=== PATIENT | female | born 1945 | race African-American/Black ===

== ENCOUNTER 2016-10-27 08:02 | Observation (INO) | payer MEDICARE, BC, OTHER ==
[2016-10-27] MEDS ORDERED: FAMOTIDINE 20 MG TABLET PO ONE (09:45)
[2016-10-27] MEDS ORDERED: PREDNISONE 20 MG TABLET PO ONE (09:45)
[2016-10-27] MEDS ORDERED: DIPHENHYDRAMINE HCL 50 MG CAPSULE PO ONE (09:45)
--- NOTE | 2016-10-27 09:48 | ER Document Report ---
ED General - General Chief Complaint: Facial Swelling Stated Complaint: FACE PAIN Mode of Arrival: Ambulatory Information source: Patient Notes: 71 yr old female on lisinopril presetns with lip swelling sicne 5am. pt denies any sob, chest pain , difficulty breathing or swallowing TRAVEL OUTSIDE OF THE [place] IN LAST 30 DAYS: No - HPI Onset: Just prior to arrival Onset/Duration: Sudden Quality of pain: No pain Severity: Mild Pain Level: Denies Associated symptoms: None Exacerbated by: Denies Relieved by: Denies Similar symptoms previously: No Recently seen / treated by doctor: No - Related Data Allergies/Adverse Reactions: Shellfish * [Shellfish] Allergy (Verified 10/27/16 08:10) Home Medications: Current Home Medications Aspirin [Aspirin EC] 81 mg PO DAILY 10/27/16 [History] Carvedilol [Coreg 25 mg Tablet] 25 mg PO Q12 10/27/16 [History] Felodipine [Felodipine ER] 5 mg PO DAILY 10/27/16 [History] Glimepiride [Amaryl] 2 mg PO DAILY 10/27/16 [History] Prasugrel Hydrochloride [Effient] 10 mg PO DAILY 10/27/16 [History] Rosuvastatin Calcium [Crestor 10 mg Tablet] 10 mg PO QHS 10/27/16 [History] Past Medical History - Social History Smoking Status: Never Smoker Cigarette use (# per day): No Chew tobacco use (# tins/day): No Smoking Education Provided: No Family History: Reviewed & Not Pertinent, Arthritis, CAD, DM, Hyperlipidemia, Hypertension - Past Medical History Cardiac Medical History: Reports: Hx Congestive Heart Failure, Hx Coronary Artery Disease, Hx Hypercholesterolemia, Hx Hypertension Endocrine Medical History: Reports: Hx Diabetes Mellitus Type 2 Musculoskeltal Medical History: Reports Hx Arthritis, Reports Hx Gout Psychiatric Medical History: Denies: Hx Depression Past Surgical History: Reports: Hx Cardiac Surgery - stent x1, Hx Cholecystectomy, Hx Coronary Stent, Hx Hysterectomy, Hx Tonsillectomy, Hx Vascular Surgery - renal stent x1. Denies: Hx Pacemaker - Immunizations Immunizations up to date: No Hx Diphtheria, Pertussis, Tetanus Vaccination: No Hx Pneumococcal Vaccination: 07/25/12 Review of Systems - Review of Systems Notes: REVIEW OF SYSTEMS: CONSTITUTIONAL : Denies fever, chills, or sweats. Denies recent illness. EENT: admits to lip swelling CARDIOVASCULAR: Denies chest pain. Denies palpitations or racing or irregular heart beat. Denies ankle edema. RESPIRATORY: Denies cough, cold, or chest congestion. Denies shortness of breath, difficulty breathing, or wheezing. GASTROINTESTINAL: Denies abdominal pain or distention. Denies nausea, vomiting , or diarrhea. Denies blood in vomitus, stools, or per rectum. Denies black, tarry stools. Denies constipation. GENITOURINARY: Denies difficulty urinating, painful urination, burning, frequency, blood in urine, or discharge. FEMALE GENITOURINARY: Denies vaginal bleeding, heavy or abnormal periods, irregular periods. Denies vaginal discharge or odor. MUSCULOSKELETAL: Denies back or neck pain or stiffness. Denies joint pain or swelling. SKIN: Denies rash, lesions or sores. HEMATOLOGIC : Denies easy bruising or bleeding. LYMPHATIC: Denies swollen, enlarged glands. NEUROLOGICAL: Denies confusion or altered mental status. Denies passing out or loss of consciousness. Denies dizziness or lightheadedness. Denies headache. Denies weakness or paralysis or loss of use of either side. Denies problems with gait or speech. Denies sensory loss, numbness, or tingling. Denies seizures. PSYCHIATRIC: Denies anxiety or stress. Denies depression, suicidal ideation, or homicidal ideation. ALL OTHER SYSTEMS REVIEWED AND NEGATIVE. Dictation was performed using [employer] voice recognition software PHYSICAL EXAMINATION: GENERAL: Well-appearing, well-nourished and in no acute distress. HEAD: Atraumatic, normocephalic. EYES: Pupils equal round and reactive to light, extraocular movements intact, conjunctiva are normal. ENT: bilateral upper and lower lip edema NECK: Normal range of motion, supple without lymphadenopathy LUNGS: Breath sounds clear to auscultation bilaterally and equal. No wheezes rales or rhonchi. HEART: Regular rate and rhythm without murmurs ABDOMEN: Soft, nontender, nondistended abdomen. No guarding, no rebound. No masses appreciated. Female : deferred Musculoskeletal: Normal range of motion, no pitting or edema. No cyanosis. NEUROLOGICAL: Cranial nerves grossly intact. Normal speech, normal gait. Normal sensory, motor exams PSYCH: Normal mood, normal affect. SKIN: Warm, Dry, normal turgor, no rashes or lesions noted. Physical Exam - Vital signs Vitals: Temp Pulse Resp BP Pulse Ox 97.3 F 89 16 144/68 H 99 10/27/16 08:13 10/27/16 08:13 10/27/16 08:13 10/27/16 08:13 10/27/16 08:13 Course - Re-evaluation Re-evalutation: 10/27/16 11:17 given patients complaints that are worsening i will admit for observation no resp distress at this time - Vital Signs Vital signs: Temp Pulse Resp BP Pulse Ox 97.3 F 89 16 144/68 H 99 10/27/16 08:13 10/27/16 08:13 10/27/16 08:13 10/27/16 08:13 10/27/16 08:13 - Laboratory Result Diagrams: 10/27/16 10:03 10/27/16 10:03 Laboratory results interpreted by me: 10/27/16 10:03 Hgb 11.7 L Hct 34.4 L RDW 14.6 H Plt Count 119 L Discharge - Discharge Clinical Impression: Medication reaction Angioedema Qualifiers: Encounter type: initial encounter Qualified Code(s): T78.3XXA - Angioneurotic edema, initial encounter Condition: Stable Disposition: ADMITTED OBSERVATION Admitting Provider: Hospitalist Unit Admitted: Medical Floor
[2016-10-27 10:20] LABS: ABSOLUTE BASOPHILS # (AUTO) 0.1 10^3/uL (0.0-0.2); ABSOLUTE EOSINOPHILS # (AUTO) 0.3 10^3/uL (0.0-0.6); ABSOLUTE LYMPHOCYTES (AUTO) 1.8 10^3/uL (0.5-4.7); ABSOLUTE MONOCYTES (AUTO) 0.8 10^3/uL (0.1-1.4); ABSOLUTE NEUT (AUTO) 5.2 10^3/uL (1.7-8.2); BASOPHILS % (AUTO) 0.7 % (0-2); EOSINOPHILS % (AUTO) 3.3 % (0-6); HEMATOCRIT 34.4 % (36.0-47.0); HEMOGLOBIN 11.7 g/dL (12.0-15.5); HGB HCT DIFFERENCE 0.7; LYMPHOCYTES % (AUTO) 22.5 % (13-45); MEAN CORPUSCULAR HEMOGLOBIN 29.6 pg (27.0-33.4); MEAN CORPUSCULAR HGB CONC 34.1 g/dL (32.0-36.0); MEAN CORPUSCULAR VOLUME 87 fl (80-97); MONOCYTES % (AUTO) 9.4 % (3-13); RED BLOOD COUNT 3.96 10^6/uL (3.72-5.28); RED CELL DISTRIBUTION WIDTH 14.6 % (11.5-14.0); SEGMENTED NEUTROPHILS % (AUTO) 64.1 % (42-78); WHITE BLOOD COUNT 8.2 10^3/uL (4.0-10.5)
[2016-10-27] MEDS ORDERED: ONDANSETRON HCL INJ/PF 4 MG/2 ML SDV IV PRN (10:37)
[2016-10-27] MEDS ORDERED: ZOLPIDEM TARTRATE 5 MG TABLET PO PRN (10:37)
[2016-10-27] MEDS ORDERED: ACETAMINOPHEN 325 MG TABLET PO PRN (10:37)
[2016-10-27] MEDS ORDERED: DIPHENHYDRAMINE HCL 25 MG CAPSULE PO PRN (10:40)
[2016-10-27 11:46] LABS: ALANINE AMINOTRANSFERASE 39 U/L (9-52); ALKALINE PHOSPHATASE 54 U/L (38-126); ANION GAP 6 (5-19); ASPARTATE AMINO TRANSFERASE 21 U/L (14-36); BILIRUBIN,TOTAL 0.3 mg/dL (0.2-1.3); BLOOD UREA NITROGEN 13 mg/dL (7-20); CALCIUM 9.3 mg/dL (8.4-10.2); CARBON DIOXIDE 26 mmol/L (22-30); CHLORIDE 109 mmol/L (98-107); GLUCOSE 70 mg/dL (75-110); POTASSIUM 3.8 mmol/L (3.6-5.0); TOTAL PROTEIN 5.7 g/dL (6.3-8.2)
[2016-10-27] MEDS ORDERED: DEXTROSE 40% GEL 15 GM TUBE PO PRN ×2 (12:45)
[2016-10-27] MEDS ORDERED: DEXTROSE 50%-WATER 25 GM/50 ML DISP.SYRIN IV PRN ×2 (12:45)
[2016-10-27] MEDS ORDERED: GLUCAGON,HUMAN RECOMB 1 MG INJ IM PRN (12:45)
[2016-10-27] MEDS ORDERED: GLIMEPIRIDE 1 MG TABLET PO ONE ×2 (13:30→17:45)
[2016-10-27] MEDS ORDERED: CARVEDILOL 12.5 MG TABLET PO ONE ×2 (13:30→17:50)
--- NOTE | 2016-10-27 14:32 | PDOC H&P ---
History of Present Illness Admission Date/PCP: 10/27/16 10:37 BRAD CAO MD Patient complains of: Upper lip swelling History of Present Illness: JUAN MIGUEL CASTANON is a 71 year old female who presents to [facility] with complaint of spontaneous upper lip swelling that began around 4am this morning. She noticed it when she got up to use the bathroom. She denies any complaints of difficulty swallowing, shortness of breath or airway compromise. She has been on termite control representative michaela inhibitor lisinopril which is the most likely cause of her angioedema. Her only other allergy is to shellfish which she has not consumed. She denies any complaints at the present time. She has been given prednisone, benadryl and pepcid. She states it has not improved yet her lip swelling. Past Medical History Cardiac Medical History: Reports: Congestive Heart Failure, Coronary Artery Disease, Hyperlipidema, Hypertension, Peripheral Vascular Disease Pulmonary Medical History: Reports: None EENT Medical History: Reports: None Neurological Medical History: Reports: None Endocrine Medical History: Reports: Diabetes Mellitus Type 2 Renal/ Medical History: Reports: None Malignancy Medical History: Reports: None GI Medical History: Reports: None Musculoskeltal Medical History: Reports: Arthritis, Gout Skin Medical History: Reports: None Psychiatric Medical History: Reports: None Denies: Depression Hematology: Reports: None Denies: Anemia Infectious Medical History: Reports: None Past Surgical History Past Surgical History: Reports: Cholecystectomy, Coronary Stent, Hysterectomy, Tonsillectomy, Vascular Surgery - renal stent x1 Denies: Pacemaker Social History Information Source: Patient Lives with: Spouse/Significant other Smoking Status: Never Smoker Frequency of Alcohol Use: None Hx Recreational Drug Use: No Hx Prescription Drug Abuse: No - Advance Directive Resuscitation Status: Full Code Surrogate healthcare decision maker:: Spouse, [place] should she become incapacitated Family History Family History: Reviewed & Not Pertinent, Arthritis, CAD, DM, Hyperlipidemia, Hypertension Parental Family History Reviewed: Yes Children Family History Reviewed: Yes Sibling(s) Family History Reviewed.: Yes Medication/Allergy Home Medications: Aspirin [Aspirin EC] 81 mg PO DAILY 10/27/16 Carvedilol [Coreg 25 mg Tablet] 25 mg PO Q12 10/27/16 Felodipine [Felodipine ER] 5 mg PO DAILY 10/27/16 Glimepiride [Amaryl] 2 mg PO DAILY 10/27/16 Prasugrel Hydrochloride [Effient] 10 mg PO DAILY 10/27/16 Rosuvastatin Calcium [Crestor 10 mg Tablet] 10 mg PO QHS 10/27/16 Allergies/Adverse Reactions: lisinopril Allergy (Verified 10/27/16 14:22) Shellfish * [Shellfish] Allergy (Verified 10/27/16 08:10) Review of Systems Constitutional: ABSENT: chills, fever(s), headache(s), weight gain, weight loss Eyes: ABSENT: visual disturbances Ears: PRESENT: as per HPI Nose, Mouth, and Throat: PRESENT: other - upper lip edema Cardiovascular: ABSENT: chest pain, dyspnea on exertion, edema, orthropnea, palpitations Respiratory: ABSENT: cough, hemoptysis Gastrointestinal: ABSENT: abdominal pain, constipation, diarrhea, hematemesis, hematochezia, nausea, vomiting Genitourinary: ABSENT: dysuria, hematuria Musculoskeletal: ABSENT: joint swelling Integumentary: ABSENT: rash, wounds Neurological: ABSENT: abnormal gait, abnormal speech, confusion, dizziness, focal weakness, syncope Psychiatric: ABSENT: anxiety, depression, homidical ideation, suicidal ideation Endocrine: ABSENT: cold intolerance, heat intolerance, polydipsia, polyuria Hematologic/Lymphatic: ABSENT: easy bleeding, easy bruising Physical Exam Vital Signs: Temp Pulse Resp BP Pulse Ox 97.3 F 89 16 144/68 H 99 10/27/16 08:13 10/27/16 08:13 10/27/16 08:13 10/27/16 08:13 10/27/16 08:13 Intake & Output 10/26/16 10/27/16 10/28/16 06:59 06:59 06:59 Weight 53.07 kg General appearance: PRESENT: no acute distress, well-developed, well-nourished Head exam: PRESENT: atraumatic, normocephalic Eye exam: PRESENT: conjunctiva pink, EOMI, PERRLA. ABSENT: scleral icterus Ear exam: PRESENT: normal external ear exam Mouth exam: PRESENT: moist, tongue midline, other - upper lip edema Neck exam: ABSENT: carotid bruit, JVD, lymphadenopathy, thyromegaly Respiratory exam: PRESENT: clear to auscultation nahid. ABSENT: rales, rhonchi, wheezes Cardiovascular exam: PRESENT: RRR. ABSENT: diastolic murmur, rubs, systolic murmur Pulses: PRESENT: normal dorsalis pedis pul Vascular exam: PRESENT: normal capillary refill GI/Abdominal exam: PRESENT: normal bowel sounds, soft. ABSENT: distended, guarding, mass, organolmegaly, rebound, tenderness Rectal exam: PRESENT: deferred Extremities exam: PRESENT: full ROM. ABSENT: calf tenderness, clubbing, pedal edema Neurological exam: PRESENT: alert, awake, oriented to person, oriented to place , oriented to time, oriented to situation, CN II-XII grossly intact. ABSENT: motor sensory deficit Psychiatric exam: PRESENT: appropriate affect, normal mood. ABSENT: homicidal ideation, suicidal ideation Skin exam: PRESENT: dry, intact, warm. ABSENT: cyanosis, rash Results Laboratory Results: 10/27/16 11:10 10/27/16 11:10 Sodium 141.0 Potassium 3.8 Chloride 109 H Carbon Dioxide 26 Anion Gap 6 BUN 13 Creatinine 1.00 Est GFR ( Amer) > 60 Est GFR (Non-Af Amer) 55 L Glucose 70 L Calcium 9.3 Total Bilirubin 0.3 AST 21 ALT 39 Alkaline Phosphatase 54 Total Protein 5.7 L Albumin 3.0 L Assessment & Plan - Diagnosis (1) Angioedema Qualifiers: Encounter type: initial encounter Qualified Code(s): T78.3XXA - Angioneurotic edema, initial encounter Is this a current diagnosis for this admission?: YesPlan: Most likely allergic reaction to lisinopril, Will admit to IMCU on telemetry will give IV solumedrol, Pepcid and benadryl . Observe for any airway compromise (2) Hypertension Qualifiers: Hypertension type: essential hypertension Qualified Code(s): I10 - Essential (primary) hypertension Is this a current diagnosis for this admission?: YesPlan: Presently normotensive. Will d/c lisinopril may need adjustment of medications (3) Hyperlipidemia Qualifiers: Hyperlipidemia type: unspecified Qualified Code(s): E78.5 - Hyperlipidemia, unspecified Is this a current diagnosis for this admission?: YesPlan: Continue statin (4) Diabetes Qualifiers: Diabetes mellitus type: type 2 - Time Time Spent: 50 to 70 Minutes Critical Time spent with patient: 25-34 minutes Medications reviewed and adjusted accordingly: Yes Anticipated discharge: Home
[2016-10-27] MEDS: METHYLPREDNISOLONE INJ 125 MG/2 ML SDV IV SCH ×2 (18:26→21:46)
[2016-10-27] MEDS: INSULIN LISPRO 100 UNIT/ML 3 ML VIAL SUBCUT PRN (21:46)
[2016-10-27] MEDS: FAMOTIDINE 20 MG TABLET PO SCH (21:47)
[2016-10-27] MEDS: CARVEDILOL 12.5 MG TABLET PO SCH (21:48)
[2016-10-27] MEDS ORDERED: ATORVASTATIN CALCIUM 20 MG TABLET PO SCH (22:00)
[2016-10-28] MEDS ORDERED: CLONIDINE HCL 0.2 MG TABLET PO PRN (04:43)
[2016-10-28] MEDS ORDERED: CLONIDINE HCL 0.1 MG TABLET ONE (05:07)
[2016-10-28] MEDS: METHYLPREDNISOLONE INJ 125 MG/2 ML SDV IV SCH ×2 (05:11→13:53)
[2016-10-28 05:31] LABS: ABSOLUTE LYMPHOCYTES (AUTO) 0.9 10^3/uL (0.5-4.7); ABSOLUTE MONOCYTES (AUTO) 0.1 10^3/uL (0.1-1.4); ABSOLUTE NEUT (AUTO) 9.7 10^3/uL (1.7-8.2); HEMATOCRIT 31.8 % (36.0-47.0); HEMOGLOBIN 10.9 g/dL (12.0-15.5); HGB HCT DIFFERENCE 0.9; LYMPHOCYTES % (AUTO) 8.4 % (13-45); MEAN CORPUSCULAR HEMOGLOBIN 29.4 pg (27.0-33.4); MEAN CORPUSCULAR HGB CONC 34.3 g/dL (32.0-36.0); MEAN CORPUSCULAR VOLUME 86 fl (80-97); MONOCYTES % (AUTO) 0.7 % (3-13); RED BLOOD COUNT 3.71 10^6/uL (3.72-5.28); SEGMENTED NEUTROPHILS % (AUTO) 90.9 % (42-78); WHITE BLOOD COUNT 10.7 10^3/uL (4.0-10.5)
[2016-10-28 05:53] LABS: ANION GAP 13 (5-19); BLOOD UREA NITROGEN 26 mg/dL (7-20); CALCIUM 9.6 mg/dL (8.4-10.2); CARBON DIOXIDE 18 mmol/L (22-30); CHLORIDE 107 mmol/L (98-107); GLUCOSE 229 mg/dL (75-110); POTASSIUM 4.1 mmol/L (3.6-5.0); SODIUM 138.3 mmol/L (137-145)
[2016-10-28] MEDS: INSULIN LISPRO 100 UNIT/ML 3 ML VIAL SUBCUT PRN (07:46)
[2016-10-28] MEDS ORDERED: GLIMEPIRIDE 1 MG TABLET PO SCH (08:00)
[2016-10-28] MEDS: CARVEDILOL 12.5 MG TABLET PO SCH (08:35)
[2016-10-28] MEDS ORDERED: LOSARTAN POTASSIUM 50 MG TABLET PO ONE (09:00)
[2016-10-28] MEDS ORDERED: FELODIPINE 5 MG PO SCH (10:00)
[2016-10-28] MEDS ORDERED: AMLODIPINE BESYLATE 5 MG TABLET PO SCH (10:00)
[2016-10-28] MEDS ORDERED: ASPIRIN 81 MG TABLET, ENT COATED PO SCH (10:00)
[2016-10-28] MEDS: FAMOTIDINE 20 MG TABLET PO SCH (10:25)
[2016-10-28 12:28] VITALS: BP 153/58
--- NOTE | 2016-10-28 15:32 | PDOC DISCHARGE SUMMARY ---
General - Admit/Disc Date/PCP Admission Date/Primary Care Provider: 10/27/16 10:37 BRAD CAO MD Discharge Date: 10/28/16 - Discharge Diagnosis (1) Angioedema Is this a current diagnosis for this admission?: YesSummary: Resolved, most likely related to lisinopril. Discontinued and started on cozaar (2) Hypertension Is this a current diagnosis for this admission?: YesSummary: Continue current medications normotensive (3) Hyperlipidemia Is this a current diagnosis for this admission?: YesSummary: Continue statin - Additional Information Resuscitation Status: Full Code Discharge Diet: Diabetic Discharge Activity: Activity As Tolerated Home Medications: Aspirin [Aspirin EC] 81 mg PO DAILY 10/27/16 Carvedilol [Coreg 25 mg Tablet] 25 mg PO Q12 10/27/16 Ezetimibe [Zetia 10 mg Tablet] 10 mg PO QHS 10/27/16 Glimepiride [Amaryl] 2 mg PO DAILY 10/27/16 Nifedipine [Nifedipine ER] 60 mg PO DAILY 10/27/16 Prasugrel Hydrochloride [Effient] 1 tab PO DAILY 10/27/16 Losartan Potassium [Cozaar 50 mg Tablet] 50 mg PO DAILY #30 tablet 10/28/16 History of Present Illness History of Present Illness: JUAN MIGUEL CASTANON is a 71 year old female who presents to [facility] with complaint of spontaneous upper lip swelling that began around 4am this morning. She noticed it when she got up to use the bathroom. She denies any complaints of difficulty swallowing, shortness of breath or airway compromise. She has been on assisted michaela inhibitor lisinopril which is the most likely cause of her angioedema. Her only other allergy is to shellfish which she has not consumed. She denies any complaints at the present time. She has been given prednisone, benadryl and pepcid. She states it has not improved yet her lip swelling. Hospital Course Hospital Course: Patient was admitted to the hospitalist service overnight on observation. She had IV steroids q8h and pepcid bid. She had some hypertension overnight that required one dose of prn antihypertensives. She was started on Cozaar [address] of her lisinopril 20 mg daily. Her angioedema completely resolved. She had no further issues and will be discharged home. She will follow up with her primary care provider in one week Physical Exam Vital Signs: Temp Pulse Resp BP Pulse Ox 97.4 F 58 L 20 153/58 H 96 10/28/16 12:25 10/28/16 12:25 10/28/16 12:25 10/28/16 12:25 10/28/16 12:25 Intake & Output 10/27/16 10/28/16 10/29/16 06:59 06:59 06:59 Intake Total 390 Output Total 400 Balance -10 Weight 75.9 kg General appearance: PRESENT: no acute distress, well-developed, well-nourished Head exam: PRESENT: atraumatic, normocephalic Eye exam: PRESENT: conjunctiva pink, EOMI, PERRLA. ABSENT: scleral icterus Ear exam: PRESENT: normal external ear exam Mouth exam: PRESENT: moist, tongue midline Neck exam: ABSENT: carotid bruit, JVD, lymphadenopathy, thyromegaly Respiratory exam: PRESENT: clear to auscultation nahid. ABSENT: rales, rhonchi, wheezes Cardiovascular exam: PRESENT: RRR. ABSENT: diastolic murmur, rubs, systolic murmur Pulses: PRESENT: normal dorsalis pedis pul Vascular exam: PRESENT: normal capillary refill GI/Abdominal exam: PRESENT: normal bowel sounds, soft. ABSENT: distended, guarding, mass, organolmegaly, rebound, tenderness Rectal exam: PRESENT: deferred Extremities exam: PRESENT: full ROM. ABSENT: calf tenderness, clubbing, pedal edema Neurological exam: PRESENT: alert, awake, oriented to person, oriented to place , oriented to time, oriented to situation, CN II-XII grossly intact. ABSENT: motor sensory deficit Psychiatric exam: PRESENT: appropriate affect, normal mood. ABSENT: homicidal ideation, suicidal ideation Skin exam: PRESENT: dry, intact, warm. ABSENT: cyanosis, rash Results Laboratory Results: 10/28/16 04:34 10/28/16 04:34 10/28/16 10/28/16 04:34 04:34 WBC 10.7 H RBC 3.71 L Hgb 10.9 L Hct 31.8 L MCV 86 MCH 29.4 MCHC 34.3 RDW 14.0 Plt Count 119 L Seg Neutrophils % 90.9 H Lymphocytes % 8.4 L Monocytes % 0.7 L Eosinophils % 0.0 Basophils % 0.0 Absolute Neutrophils 9.7 H Absolute Lymphocytes 0.9 Absolute Monocytes 0.1 Absolute Eosinophils 0.0 Absolute Basophils 0.0 Sodium 138.3 Potassium 4.1 Chloride 107 Carbon Dioxide 18 L Anion Gap 13 BUN 26 H Creatinine 1.10 Est GFR ( Amer) 59 L Est GFR (Non-Af Amer) 49 L Glucose 229 H Calcium 9.6 Qualifiers PATEINT BEING DISCHARGED WITH ANY OF THE FOLLOWING DIAGNOSIS?: No Plan Discharge Plan: Discharge home with . Follow up with primary care provider in one week Time Spent: Less than 30 Minutes
[2016-10-28] MEDS ORDERED: LOSARTAN POTASSIUM 50 MG TABLET PO SCH (22:00)
== END 2016-10-28 14:40 | disposition home or self-care (01) ==
LOC: ER 08:02 → EH 10:37 → UNDOADMOB 11:21 → 3N 15:40
PROVIDERS: ADMIT Emergency Medicine; ATTEND Emergency Medicine
DX: T78.3XXA Angioneurotic edema, initial encounter (principal); I10 Essential (primary) hypertension; E78.5 Hyperlipidemia, unspecified; E11.9 Type 2 diabetes mellitus without complications; I50.9 Heart failure, unspecified; I25.10 Atherosclerotic heart disease of native coronary artery without angina pectoris; I73.9 Peripheral vascular disease, unspecified; M19.90 Unspecified osteoarthritis, unspecified site; M10.9 Gout, unspecified; Z95.5 Presence of coronary angioplasty implant and graft; Z79.82 Long term (current) use of aspirin; Z79.84 Long term (current) use of oral hypoglycemic drugs; Z88.8 Allergy status to other drugs, medicaments and biological substances; Z79.899 Other long term (current) drug therapy
CPT/HCPCS: 99284; 36415 ×2; 82962 ×2; 85025 ×2; 80048; 80053; G0378 ×2; A9270 ×15; J2930 ×2; J1815; J7512

== ENCOUNTER → 2016-12-24 | Outpatient (CLI) | payer BC, MEDICARE, OTHER ==
[~2016-12-24] MED LIST: REGADENOSON INJ 0.4 MG/5 ML DISP.SYRIN IV ONE
--- NOTE | 2016-12-24 14:05 | DRAGON STRESS TEST REPORT ---
INTRAVENOUS LEXISCAN CARDIOLITE STRESS TEST USING SINGLE PHOTON EMMISION COMPUTERIZED TOMOGRAPHIC. DATE OF PROCEDURE: December 24, 2016 INDICATION : CAD, fatigue CARDIAC RISK FACTORS: Diabetes, hypertension, dyslipidemia RESTING EKG: Sinus rhythm, no significant baseline ST-T wave changes noted STRESS EKG: No significant changes noted with LexiScan bolus REASON FOR TERMINATION: Protocol. PROCEDURE REPORT: Baseline heart rate 74 beats per minute with blood pressure of 134/57. Patient had no significant complaints. Heart rate at 2 minutes post bolus 88 with a blood pressure of 145/52. 3 minutes post bolus heart rate 89 with blood pressure of 144/54. No significant EKG changes were noted. Patient had no significant complaints during the procedure or postprocedure. CONCLUSIONS: Normal EKG and hemodynamic response to IV LexiScan. NUCLEAR DATA: At rest the patient was given 9.69 millicuries of technetium 99 sestamibi injected intravenously. As per protocol rest gated SPECT images were obtained. Subsequently the patient was given intravenous LexiScan at a dose of 0.4 mg in 5 mL intravenously, followed by flush with normal saline. Subsequently the stress dose of 32.2 millicuries of technetium 99 sestamibi was injected intravenously. As per protocol stress gated images were obtained. NUCLEAR INTERPRETATION: Both raw and processed data were used for interpretation. Visual, qualitative, computer-generated quantitative data was used. There was good myocardial uptake of technetium compound. Motion artifact and soft tissue attenuations were noted. Increased visceral uptake was noted. Breast attenuation artifacts were noted. No definitive areas of transient perfusion defect noted except for borderline decreased uptake in the basal and mid anterior wall in stress imaging which is felt to be related to differences in breast attenuation artifact as there were no corresponding wall motion abnormalities noted. No definitive areas of fixed perfusion defect or scars noted. EKG gated imaging showed LV EF at 55 %, rest and stress gated EF similar visually, without any regional wall motion abnormalities being noted. T. I D. ratio was on 1.02. Lung heart ratio noted to be within normal limits 0.35. No significant extracardiac and abnormal radiotracer activities were noted. RV free wall uptake was noted to be normal. IMPRESSION: Also refer to comments under nuclear interpretation. Also test results needs to be interpreted in the context of pretest probability. 1. There is no definitive scintigraphic evidence of LexiScan induced myocardial ischemia. 2. There is no definitive scintigraphic evidence of myocardial infarction/scar. 3. EKG gated imaging shows left ejection fraction of approximately 55 %. 4. Clinical correlation requested as occasionally single vessel disease or balanced ischemia could be missed. In approximately 10% of the cases Lexiscan may not cause adequate vasodilatory stress. RECOMMENDATIONS: Aggressive risk factor modification, medical therapy. Clinical correlation with echocardiogram derived ejection fraction. Inability to exercise by itself can lead to increased cardiovascular event risks. Consider cardiology consultation and or follow-up if clinically indicated. Cyril Tejada M.D., [employer] product development coordinator, Board certified in cardiovascular diseases, Nuclear cardiology, Echocardiography Cardiac CT and cardiac MRI Ph. [phone] [facility]
== END ==
LOC: RAD 08:15
PROVIDERS: ATTEND Internal Medicine Cardiovascular Disease
DX: I25.10 Atherosclerotic heart disease of native coronary artery without angina pectoris (principal)
CPT/HCPCS: 93017; 78452; A9500; J2785; Q9969

== ENCOUNTER 2017-10-07 19:33 | Emergency (ER) | payer BC, MEDICARE, OTHER ==
[2017-10-07] MEDS ORDERED: ASPIRIN 81 MG TABLET, CHEWABLE PO ONE (19:57)
--- NOTE | 2017-10-07 20:43 | RADIOLOGY REPORT (SQ) ---
EXAM DESCRIPTION: CHEST SINGLE VIEW COMPLETED DATE/TIME: 10/07/2017 8:33 pm REASON FOR STUDY: cp COMPARISON: 05/11/2016. EXAM PARAMETERS: NUMBER OF VIEWS: One view. TECHNIQUE: Single frontal radiographic view of the chest acquired. RADIATION DOSE: NA LIMITATIONS: None. FINDINGS: LUNGS AND PLEURA: No opacities, masses or pneumothorax. No pleural effusion. MEDIASTINUM AND HILAR STRUCTURES: No masses. Contour normal. HEART AND VASCULAR STRUCTURES: Heart normal in size. Normal vasculature. BONES: No acute findings. HARDWARE: None in the chest. OTHER: No other significant finding. IMPRESSION: NO ACUTE RADIOGRAPHIC FINDING IN THE CHEST. TECHNICAL DOCUMENTATION: JOB ID: [id number] [employer]- All Rights Reserved
[2017-10-07 20:50] LABS: ABSOLUTE EOSINOPHILS # (AUTO) 0.4 10^3/uL (0.0-0.6); ABSOLUTE LYMPHOCYTES (AUTO) 2.7 10^3/uL (0.5-4.7); ABSOLUTE MONOCYTES (AUTO) 0.9 10^3/uL (0.1-1.4); ABSOLUTE NEUT (AUTO) 4.9 10^3/uL (1.7-8.2); BASOPHILS % (AUTO) 0.5 % (0-2); EOSINOPHILS % (AUTO) 4.1 % (0-6); HEMATOCRIT 31.2 % (36.0-47.0); HEMOGLOBIN 10.6 g/dL (12.0-15.5); HGB HCT DIFFERENCE 0.6; LYMPHOCYTES % (AUTO) 30.6 % (13-45); MEAN CORPUSCULAR HEMOGLOBIN 29.6 pg (27.0-33.4); MEAN CORPUSCULAR VOLUME 87 fl (80-97); MONOCYTES % (AUTO) 9.7 % (3-13); RED BLOOD COUNT 3.59 10^6/uL (3.72-5.28); RED CELL DISTRIBUTION WIDTH 13.7 % (11.5-14.0); SEGMENTED NEUTROPHILS % (AUTO) 55.1 % (42-78); WHITE BLOOD COUNT 8.9 10^3/uL (4.0-10.5)
[2017-10-07 21:10] LABS: ALANINE AMINOTRANSFERASE 26 U/L (9-52); ALBUMIN 3.8 g/dL (3.5-5.0); ALKALINE PHOSPHATASE 67 U/L (38-126); ANION GAP 12 (5-19); ASPARTATE AMINO TRANSFERASE 22 U/L (14-36); BILIRUBIN,DIRECT 0.2 mg/dL (0.0-0.4); BILIRUBIN,TOTAL 0.2 mg/dL (0.2-1.3); BLOOD UREA NITROGEN 22 mg/dL (7-20); CALCIUM 9.8 mg/dL (8.4-10.2); CARBON DIOXIDE 21 mmol/L (22-30); CHLORIDE 110 mmol/L (98-107); CREATINE KINASE 209 U/L (30-135); CREATININE RESULT 1.29 mg/dL (0.52-1.25); GLUCOSE 101 mg/dL (75-110); POTASSIUM 4.1 mmol/L (3.6-5.0); SODIUM 142.5 mmol/L (137-145); TOTAL PROTEIN 6.6 g/dL (6.3-8.2)
--- NOTE | 2017-10-07 21:15 | ER Document Report ---
ED Cardiac - General Chief Complaint: Chest Pain Stated Complaint: CHEST PAIN Time Seen by Provider: 10/07/17 20:56 Notes: 72 years old female who had a third stent placed [place], 3 weeks ago, presents today with left precordial pain radiating to the left arm on and off since this morning. Associated with nausea but no vomiting. Denies any palpitation or diaphoresis. Denies any fever chills cough or other constitutional symptoms. She also complained of exertional shortness of breath since this morning TRAVEL OUTSIDE OF THE [place] IN LAST 30 DAYS: No - Related Data Allergies/Adverse Reactions: lisinopril Allergy (Verified 10/27/16 14:22) Shellfish * [Shellfish] Allergy (Verified 10/27/16 08:10) Home Medications: Current Home Medications Albuterol Sulfate [Proair HFA] 1 - 2 puff IH Q4 PRN 10/07/17 [History] Aspirin [Aspirin EC] 81 mg PO DAILY 10/07/17 [History] Carvedilol Phosphate [Coreg CR 80 mg Ext. Release Capsule] 1 cap.sr PO DAILY [History] Colchicine [Colchicine 0.6 mg Tablet] 0.6 mg PO BIDP PRN 10/07/17 [History] Glimepiride [Amaryl] 2 mg PO DAILY 10/07/17 [History] Hydralazine HCl 50 mg PO BID 10/07/17 [History] Losartan Potassium 50 mg PO DAILY 10/07/17 [History] Nifedipine [Procardia XL 60 mg Tablet] 60 mg PO DAILY 10/07/17 [History] Prasugrel HCl [Effient] 10 mg PO DAILY 10/07/17 [History] Rosuvastatin Calcium [Crestor] 40 mg PO QHS 10/07/17 [History] Ubidecarenone/Vit E Acet [Co Q-10 100 mg Softgel] 2 each PO QHS 10/07/17 [ History] Past Medical History - Social History Smoking Status: Unknown if Ever Smoked Family History: Reviewed & Not Pertinent, Arthritis, CAD, DM, Hyperlipidemia, Hypertension Patient has suicidal ideation: No Patient has homicidal ideation: No - Past Medical History Cardiac Medical History: Reports: Hx Congestive Heart Failure, Hx Coronary Artery Disease, Hx Hypercholesterolemia, Hx Hypertension, Hx Peripheral Vascular Disease Pulmonary Medical History: Reports: Hx COPD Endocrine Medical History: Reports: Hx Diabetes Mellitus Type 2 Renal/ Medical History: Denies: Hx Peritoneal Dialysis Musculoskeltal Medical History: Reports Hx Arthritis, Reports Hx Gout Psychiatric Medical History: Denies: Hx Depression Past Surgical History: Reports: Hx Cardiac Catheterization - 3stents, Hx Cardiac Surgery - stent x1, Hx Cholecystectomy, Hx Coronary Stent, Hx Hysterectomy, Hx Tonsillectomy, Hx Vascular Surgery - renal stent x1. Denies: Hx Pacemaker - Immunizations Immunizations up to date: No Hx Diphtheria, Pertussis, Tetanus Vaccination: No Hx Pneumococcal Vaccination: 07/25/12 Review of Systems - Review of Systems Notes: REVIEW OF SYSTEMS: CONSTITUTIONAL : Denies fever, chills, or sweats. Denies recent illness. EENT: Denies eye, ear, throat, or mouth pain or symptoms. Denies nasal or sinus congestion or discharge. Denies throat, tongue, or mouth swelling or difficulty swallowing. CARDIOVASCULAR: Denies chest pain. Denies palpitations or racing or irregular heart beat. Denies ankle edema. RESPIRATORY: Denies cough, cold, or chest congestion. Denies shortness of breath, difficulty breathing, or wheezing. GASTROINTESTINAL: Denies abdominal pain or distention. Denies nausea, vomiting , or diarrhea. Denies blood in vomitus, stools, or per rectum. Denies black, tarry stools. Denies constipation. GENITOURINARY: Denies difficulty urinating, painful urination, burning, frequency, blood in urine, or discharge. FEMALE GENITOURINARY: Denies vaginal bleeding, heavy or abnormal periods, irregular periods. Denies vaginal discharge or odor. MUSCULOSKELETAL: Denies back or neck pain or stiffness. Denies joint pain or swelling. SKIN: Denies rash, lesions or sores. HEMATOLOGIC : Denies easy bruising or bleeding. LYMPHATIC: Denies swollen, enlarged glands. NEUROLOGICAL: Denies confusion or altered mental status. Denies passing out or loss of consciousness. Denies dizziness or lightheadedness. Denies headache. Denies weakness or paralysis or loss of use of either side. Denies problems with gait or speech. Denies sensory loss, numbness, or tingling. Denies seizures. PSYCHIATRIC: Denies anxiety or stress. Denies depression, suicidal ideation, or homicidal ideation. ALL OTHER SYSTEMS REVIEWED AND NEGATIVE. PHYSICAL EXAMINATION: GENERAL: Well-appearing, well-nourished and in no acute distress. HEAD: Atraumatic, normocephalic. EYES: Pupils equal round and reactive to light, extraocular movements intact, conjunctiva are normal. ENT: Nares patent, oropharynx clear without exudates. Moist mucous membranes. NECK: Normal range of motion, supple without lymphadenopathy LUNGS: Breath sounds clear to auscultation bilaterally and equal. No wheezes rales or rhonchi. HEART: Regular rate and rhythm without murmurs ABDOMEN: Soft, nontender, nondistended abdomen. No guarding, no rebound. No masses appreciated. Female : deferred Musculoskeletal: Normal range of motion, no pitting or edema. No cyanosis. NEUROLOGICAL: Cranial nerves grossly intact. Normal speech, normal gait. Normal sensory, motor exams PSYCH: Normal mood, normal affect. SKIN: Warm, Dry, normal turgor, no rashes or lesions noted. Dictation was performed using [employer] voice recognition software Physical Exam - Vital signs Vitals: Temp Pulse Resp BP Pulse Ox 97.8 F 94 18 216/80 H 99 10/07/17 19:55 10/07/17 19:55 10/07/17 19:55 10/07/17 19:55 10/07/17 19:55 Course - Re-evaluation Re-evalutation: 10/07/17 22:04 Lab reports were discussed with patient, her refinery operator light ends recovery in [facility] call Dr. Nayla Tovar was called 10/07/17 22:37 The case was discussed with Dr. Guerrero at [facility] ED, arrangements are made to transfer. 10/07/17 22:37 As per the refinery operator light ends recovery Dr. Gu at [place], given subcu Lovenox. - Vital Signs Vital signs: Temp Pulse Resp BP Pulse Ox 97.8 F 94 15 176/72 H 98 10/07/17 19:55 10/07/17 19:55 10/07/17 20:38 10/07/17 20:38 10/07/17 20:38 - Laboratory Result Diagrams: 10/07/17 20:35 10/07/17 20:35 Laboratory results interpreted by me: 10/07/17 10/07/17 20:35 20:35 RBC 3.59 L Hgb 10.6 L Hct 31.2 L Chloride 110 H Carbon Dioxide 21 L BUN 22 H Creatinine 1.29 H Est GFR ( Amer) 49 L Est GFR (Non-Af Amer) 41 L Creatine Kinase 209 H - EKG Interpretation by Me EKG shows normal: Sinus rhythm - Electrocardiogram shows sinus rhythm at the rate of 90 bpm, normal axis, no acute ST elevation ST depression T-wave inversion noted. Critical Care Note - Critical Care Note Total time excluding time spent on procedures (mins): 30 Comments: Unstable angina, EKG and chest x-ray reviewed, case discussed with cardiology technologist Dr. Gu [facility], transfer arrangements made. Discharge - Discharge Clinical Impression: Unstable angina pectoris, History of heart artery stent [facility]position: [facility]
[2017-10-07 21:23] LABS: CREATINE KINASE MB 2.94 ng/mL (<4.55); TROPONIN I 0.014 ng/mL
--- NOTE | 2017-10-07 21:52 | EKG REPORT ---
SEVERITY:- NORMAL ECG - SINUS RHYTHM : Confirmed by: Cyril Tejada 07-Oct-2017 21:51:45
[2017-10-07] MEDS ORDERED: NITROGLYCERIN 2% OINTMENT 1 GM PACKET TP ONE (22:03)
[2017-10-07] MEDS ORDERED: ENOXAPARIN SODIUM INJ 80 MG/0.8 ML DISP.SYRIN SUBCUT SCH (23:00)
[2017-10-08 00:18] VITALS: BP 158/62
[2017-10-08] MEDS ORDERED: ENOXAPARIN SODIUM INJ 80 MG/0.8 ML DISP.SYRIN SUBCUT SCH (10:00)
== END 2017-10-08 00:20 | disposition short-term general hospital (02) ==
LOC: ER 19:33
DX: I25.110 Atherosclerotic heart disease of native coronary artery with unstable angina pectoris (principal); Z95.5 Presence of coronary angioplasty implant and graft; R11.0 Nausea; R06.02 Shortness of breath; I10 Essential (primary) hypertension; J44.9 Chronic obstructive pulmonary disease, unspecified; E11.51 Type 2 diabetes mellitus with diabetic peripheral angiopathy without gangrene; Z91.013 Allergy to seafood; Z88.8 Allergy status to other drugs, medicaments and biological substances
CPT/HCPCS: 36415; 71010; 80053; 82550; 82553; 84484; 85025; 93005; 93010; 96372; 99291

== ENCOUNTER 2018-05-21 19:52 | Emergency (ER) | payer MEDICARE, BC, OTHER ==
[2018-05-21 20:08] VITALS: BP 141/55
== END 2018-05-22 04:33 | disposition left against medical advice (07) ==
LOC: ER 19:52
DX: Z53.21 Procedure and treatment not carried out due to patient leaving prior to being seen by health care provider (principal)

== ENCOUNTER 2020-08-14 09:54 | Observation (INO) | payer MEDICARE, BC, OTHER ==
--- NOTE | 2020-08-14 10:18 | ER Document Report ---
ED Medical Screen (RME) - General Chief Complaint: Chest Pain Stated Complaint: CHEST PAIN Time Seen by Provider: 08/14/20 10:14 Primary Care Provider: BRAD CAO MD [Primary Care Provider] - Follow up as needed Information source: Patient Notes: Patient presents complaining of midsternal chest pain that started yesterday. Patient states pain has been off and on. Patient also complains of pain to the left upper and left lower extremity. Patient reports some mild shortness of breath. No nausea or vomiting. Patient denies any cough. Patient does have a history of diabetes, hypertension and coronary stents. I have greeted and performed a rapid initial assessment of this patient. A comprehensive ED assessment and evaluation of the patient, analysis of test results and completion of the medical decision making process will be conducted by additional ED providers. TRAVEL OUTSIDE OF THE [place] IN LAST 30 DAYS: No - Related Data Allergies/Adverse Reactions: lisinopril Allergy (Verified 05/21/18 19:52) Shellfish * [Shellfish] Allergy (Verified 05/21/18 19:52) Home Medications: glimepride 2mg. crestor 40mg. coreg 80mg. hydralazine 50mg. nifedipine 60mg. losartan 50 mg. prenarub 0.45mg Past Medical History - Social History Family history: CAD - CHF - Past Medical History Cardiac Medical History: Reports: Hx Congestive Heart Failure, Hx Coronary Artery Disease, Hx Hypercholesterolemia, Hx Hypertension, Hx Peripheral Vascular Disease Pulmonary Medical History: Reports: Hx COPD Endocrine Medical History: Reports: Hx Diabetes Mellitus Type 2 Renal/ Medical History: Denies: Hx Peritoneal Dialysis Musculoskeltal Medical History: Reports Hx Arthritis, Reports Hx Gout Psychiatric Medical History: Denies: Hx Depression Past Surgical History: Reports: Hx Cardiac Catheterization - 3stents, Hx Cardiac Surgery - stent x1, Hx Cholecystectomy, Hx Coronary Stent, Hx Hysterectomy, Hx Tonsillectomy, Hx Vascular Surgery - renal stent x1. Denies: Hx Pacemaker - Immunizations Immunizations up to date: No Hx Diphtheria, Pertussis, Tetanus Vaccination: No Physical Exam - Respiratory Respiratory status: No respiratory distress - Cardiovascular Rhythm: Regular Heart sounds: S1 appreciated, S2 appreciated Doctor's Discharge - Discharge Referrals: BRAD CAO MD [Primary Care Provider] - Follow up as needed
--- NOTE | 2020-08-14 10:55 | RADIOLOGY REPORT (SQ) ---
EXAM DESCRIPTION: CHEST SINGLE VIEW IMAGES COMPLETED DATE/TIME: 08/14/2020 10:45 am REASON FOR STUDY: cp COMPARISON: 05/11/2016. EXAM PARAMETERS: NUMBER OF VIEWS: One view. TECHNIQUE: Single frontal radiographic view of the chest acquired. RADIATION DOSE: NA LIMITATIONS: None. FINDINGS: LUNGS AND PLEURA: No opacities, masses or pneumothorax. No pleural effusion. MEDIASTINUM AND HILAR STRUCTURES: No masses. Contour normal. HEART AND VASCULAR STRUCTURES: Heart normal in size. Normal vasculature. BONES: No acute findings. HARDWARE: None in the chest. OTHER: No other significant finding. IMPRESSION: NO ACUTE RADIOGRAPHIC FINDING IN THE CHEST. TECHNICAL DOCUMENTATION: JOB ID: [id number] 2010 [employer]- All Rights Reserved Reading location - IP/workstation name: [email or web address]
[2020-08-14 11:23] LABS: ABSOLUTE EOSINOPHILS # (AUTO) 0.3 10^3/uL (0.0-0.6); ABSOLUTE LYMPHOCYTES (AUTO) 1.3 10^3/uL (0.5-4.7); ABSOLUTE MONOCYTES (AUTO) 0.5 10^3/uL (0.1-1.4); ABSOLUTE NEUT (AUTO) 4.1 10^3/uL (1.7-8.2); BASOPHILS % (AUTO) 0.5 % (0-2); EOSINOPHILS % (AUTO) 4.4 % (0-6); HEMATOCRIT 33.5 % (36.0-47.0); HEMOGLOBIN 11.4 g/dL (12.0-15.5); LYMPHOCYTES % (AUTO) 21.4 % (13-45); MEAN CORPUSCULAR HEMOGLOBIN 29.3 pg (27.0-33.4); MEAN CORPUSCULAR HGB CONC 34.2 g/dL (32.0-36.0); MEAN CORPUSCULAR VOLUME 86 fl (80-97); MONOCYTES % (AUTO) 7.7 % (3-13); PLATELET COUNT 150 10^3/uL (150-450); RED CELL DISTRIBUTION WIDTH 14.3 % (11.5-14.0); TOTAL CELLS COUNTED % (AUTO) 100 %; WHITE BLOOD COUNT 6.2 10^3/uL (4.0-10.5)
[2020-08-14] MEDS ORDERED: ASPIRIN 81 MG TABLET, CHEWABLE PO ONE (11:42)
[2020-08-14 11:47] LABS: ALBUMIN 3.7 g/dL (3.5-5.0); ALKALINE PHOSPHATASE 55 U/L (38-126); ANION GAP 9 (5-19); ASPARTATE AMINO TRANSFERASE 20 U/L (14-36); BILIRUBIN,DIRECT 0.3 mg/dL (0.0-0.4); BILIRUBIN,TOTAL 0.3 mg/dL (0.2-1.3); BLOOD UREA NITROGEN 21 mg/dL (7-20); CALCIUM 10.5 mg/dL (8.4-10.2); CARBON DIOXIDE 23 mmol/L (22-30); CHLORIDE 108 mmol/L (98-107); GLUCOSE 236 mg/dL (75-110); POTASSIUM 4.4 mmol/L (3.6-5.0); TOTAL PROTEIN 6.6 g/dL (6.3-8.2)
[2020-08-14 11:57] LABS: NT PRO BNP 93 pg/mL (<450)
[2020-08-14 11:58] LABS: TROPONIN I < 0.012 ng/mL
--- NOTE | 2020-08-14 12:31 | ER Document Report ---
ED Cardiac - General Chief Complaint: Chest Pain Stated Complaint: CHEST PAIN Time Seen by Provider: 08/14/20 10:14 Primary Care Provider: BRAD CAO MD [Primary Care Provider] - Follow up as needed TRAVEL OUTSIDE OF THE [place] IN LAST 30 DAYS: No - HPI Notes: Patient is a 75-year-old female with a past medical history of diabetes, hypertension, high cholesterol, previous [place] with 3 stents placed who presents with chest pain. Patient states that chest pain began last night. She describes it as midsternal. It last for about 15 minutes. It is not pleuritic. It does not radiate to her back. She states that she has some left arm pain associated with this and her left leg felt warm. She denies any weakness or numbness. No cough. No recent illnesses. No nausea. Patient took Tylenol today without relief. She took aspirin yesterday. - Related Data Allergies/Adverse Reactions: lisinopril Allergy (Verified 08/14/20 11:11) Shellfish * [Shellfish] Allergy (Verified 08/14/20 11:11) Home Medications: glimepride 2mg. crestor 40mg. coreg 80mg. hydralazine 50mg. nifedipine 60mg. losartan 50 mg. prenarub 0.45mg Past Medical History - General Information source: Patient - Social History Smoking Status: Never Smoker Family History: Reviewed & Not Pertinent, Arthritis, CAD, DM, Hyperlipidemia, Hypertension - Past Medical History Cardiac Medical History: Reports: Hx Congestive Heart Failure, Hx Coronary Artery Disease, Hx Hypercholesterolemia, Hx Hypertension, Hx Peripheral Vascular Disease Pulmonary Medical History: Reports: Hx COPD Endocrine Medical History: Reports: Hx Diabetes Mellitus Type 2 Renal/ Medical History: Denies: Hx Peritoneal Dialysis Musculoskeletal Medical History: Reports Hx Arthritis, Reports Hx Gout Psychiatric Medical History: Denies: Hx Depression Past Surgical History: Reports: Hx Cardiac Catheterization - 3stents, Hx Cardiac Surgery - stent x1, Hx Cholecystectomy, Hx Coronary Stent, Hx Hysterectomy, Hx Tonsillectomy, Hx Vascular Surgery - renal stent x1. Denies: Hx Pacemaker - Immunizations Immunizations up to date: No Hx Diphtheria, Pertussis, Tetanus Vaccination: No Hx Pneumococcal Vaccination: 07/25/12 Review of Systems - Review of Systems Notes: CONSTITUTIONAL: No fever, fatigue or weight loss. SKIN: No rash. HENT: No congestion, ear pain, or sore throat. ENDOCRINE: No polyuria or polydipsia. CARDIOVASCULAR: Positive for chest pain RESPIRATORY: No cough, shortness of breath, congestion, or wheezing. GASTROINTESTINAL: No abdominal pain, nausea, vomiting, bloody stools or diarrhea. GENITOURINARY: No dysuria. MUSCULOSKELETAL: No joint pain or swelling. LYMPHATIC: No swollen glands. NEUROLOGIC: No seizures. No headache, focal weakness or sensory changes. HEMATOLOGIC: No unusual bruising or bleeding. PSYCHIATRIC: No depression or anxiety. Physical Exam - Vital signs Vitals: Temp Pulse Resp BP Pulse Ox 97.5 F 73 18 164/60 H 98 08/14/20 10:08 08/14/20 10:08 08/14/20 10:08 08/14/20 10:08 08/14/20 10:08 - General General appearance: Appears well Notes: VITAL SIGNS: Within normal limits. GENERAL: No acute distress, non-toxic appearance. HEAD: Normal with no signs of head trauma. EYES: EOMI, conjunctiva normal, no discharge. EARS: Hearing grossly intact. NOSE: Normal. NECK: Normal range of motion, no tenderness, supple, no lymphadenopathy, No adenopathy, no JVD. CHEST: Clear breath sounds bilaterally. No wheezes, rales, or rhonchi. Reproducible mid sternal chest pain CARDIAC: Regular rate and rhythm. VASCULAR: No Edema. Peripheral pulses normal and equal in all extremities. ABDOMEN: Normal and soft with no tenderness, no masses or pulsatile masses. GENITOURINARY: Normal, No tenderness LYMPATHTIC: No lymphadenopathy noted. MUSCULOSKELETAL: Good range of motion of all major joints. Extremities without clubbing, cyanosis or edema. NEUROLOGICAL: Alert and oriented x 3. No focal sensory or strength deficits. Speech normal. Follows commands appropriately. PSYCHIATRIC: Normal Affect, judgement and mood. SKIN: Normal appearance with no rashes or lesions. Course - Re-evaluation Re-evalutation: 08/14/20 12:33 Heart score is 5. 08/14/20 13:36 Patient states chest pain has resolved. She occasionally does get spasms but that last several seconds. Her EKG is unremarkable. First troponin was negative and second one is pending. I did discuss with Dr. Kumar, cardiology. He states he has seen her in the past. He did recommend we keep her in the hospital for monitoring. I discussed this with the patient and she is very agreeable. I also discussed with the hospitalist. Patient was given aspirin in the ER today. - Vital Signs Vital signs: Temp Pulse Resp BP Pulse Ox 97.5 F 73 19 130/55 H 98 08/14/20 10:08 08/14/20 10:08 08/14/20 12:01 08/14/20 12:01 08/14/20 12:01 - Laboratory Result Diagrams: 08/14/20 10:57 08/14/20 10:57 Laboratory results interpreted by me: 08/14/20 08/14/20 10:57 10:57 Hgb 11.4 L Hct 33.5 L RDW 14.3 H Chloride 108 H BUN 21 H Creatinine 1.53 H Est GFR ( Amer) 40 L Est GFR (MDRD) Non-Af 33 L Glucose 236 H Calcium 10.5 H - Diagnostic Test Radiology reviewed: Image reviewed, Reports reviewed - EKG Interpretation by Me EKG shows normal: Sinus rhythm Rate: Normal Rhythm: NSR Additional EKG results interpreted by me: 08/14/20 12:34 Sinus rhythm at a rate of 70. QTc 393. No acute ST changes. EKG is similar to previous. Discharge - Discharge Clinical Impression: Chest pain Qualifiers: Chest pain type: unspecified Qualified Code(s): R07.9 - Chest pain, unspecified Condition: Stable Disposition: ADMITTED OBSERVATION Admitting Provider: Leo (Hospitalist) Unit Admitted: Telemetry Referrals: BRAD CAO MD [Primary Care Provider] - Follow up as needed
[2020-08-14] MEDS ORDERED: ONDANSETRON HCL INJ/PF 4 MG/2 ML SDV IV PRN (14:43)
[2020-08-14] MEDS ORDERED: NITROGLYCERIN 0.4 MG/TAB 25 TAB/BOTTLE SL PRN (14:43)
[2020-08-14] MEDS ORDERED: ACETAMINOPHEN 325 MG TABLET PO PRN (14:43)
--- NOTE | 2020-08-14 16:19 | EKG REPORT ---
SEVERITY:- BORDERLINE ECG - SINUS RHYTHM BORDERLINE T ABNORMALITIES, DIFFUSE LEADS : Confirmed by: Jaziel Barahona MD 14-Aug-2020 16:18:43
[2020-08-14] MEDS ORDERED: DEXTROSE 40% GEL 15 GM TUBE PO PRN ×2 (18:44)
[2020-08-14] MEDS ORDERED: DEXTROSE 50%-WATER 25 GM/50 ML DISP.SYRIN IV PRN ×2 (18:44)
[2020-08-14] MEDS ORDERED: GLUCAGON,HUMAN RECOMB 1 MG INJ IM PRN (18:44)
[2020-08-14] MEDS ORDERED: NORMAL SALINE 1000 ML 1,000 ML IV PRN (20:00)
--- NOTE | 2020-08-14 20:05 | PDOC H&P ---
History of Present Illness Admission Date/PCP: 08/14/20 14:18 BRAD CAO MD Patient complains of: Chest pain History of Present Illness: JUAN MIGUEL CASTANON is a 75 year old female with a past medical history of non- STEMI, CAD, cardiac catheterization with stents, renal artery stenosis s/p stent, hypertension, hyperlipidemia, COPD, and diabetes mellitus who presented to the emergency department today with a complaint of chest pain x24 hours. She reports that her chest pain is substernal, described as pressure with stabbing sensation, nonradiating, unrelated to activity, without alleviating or aggravating factors. She reports that her pain is intermittent with each episode lasting 10 to 15 minutes. She denies associated symptoms. At the time of my assessment, the patient denied all cardiac history including heart attack and cardiac procedures (specifically asked the patient about cardiac catheterizations and CABG). At the conclusion of our conversation the patient tells me that she was previously seen by Dr. Kumar but is now seen by a battery starter in [place]. When I asked why she has a battery starter, she states, "just to keep me healthy." Fortunately, I was able to speak with Dr. Kumar to obtain somewhat limited cardiac history. We have requested most recent progress note from the patient's battery starter. Patient does tell me that she has not had an echocardiogram or cardiac stress test within the last year, however, I do feel that this information needs to be verified as she is clearly a poor historian. Evaluation in the emergency department is essentially unremarkable other than hypertension. CBC revealed mild anemia; improved from most recent labs. Chemistry revealed baseline renal function; CKD 3. She does have a mildly elevated calcium of 10.5. Serial troponins are negative x2. Chest x-ray is benign. EKG shows normal sinus rhythm without ST segment changes. She is referred to the hospitalist service for further evaluation and management of the above-stated complaints and findings. Past Medical History Cardiac Medical History: Reports: Congestive Heart Failure, Coronary Artery Disease, Hyperlipidema, Hypertension, Peripheral Vascular Disease Pulmonary Medical History: Reports: Chronic Obstructive Pulmonary Disease (COPD) EENT Medical History: Reports: None Neurological Medical History: Reports: Other - TIA Endocrine Medical History: Reports: Diabetes Mellitus Type 2 Musculoskeltal Medical History: Reports: Arthritis, Gout Psychiatric Medical History: Denies: Depression Hematology: Denies: Anemia Past Surgical History Past Surgical History: Reports: Cardiac Catheterization - 3 stents, Cholecystectomy, Coronary Stent, Hysterectomy, Tonsillectomy, Vascular Surgery - renal stent x1 Denies: Pacemaker Social History Information Source: Patient, DrMoraima Leiva, [facility] Records Lives with: Family Smoking Status: Never Smoker Electronic Cigarette use?: No Frequency of Alcohol Use: None Hx Recreational Drug Use: No Drugs: None Hx Prescription Drug Abuse: No - Advance Directive Resuscitation Status: Full Code Family History Family History: Reviewed & Not Pertinent, Arthritis, CAD, DM, Hyperlipidemia, Hypertension Parental Family History Reviewed: Yes Children Family History Reviewed: Yes Sibling(s) Family History Reviewed.: Yes Medication/Allergy Home Medications: Albuterol Sulfate [Proair HFA] 1 - 2 puff IH Q4 PRN 10/07/17 Aspirin [Aspirin EC] 81 mg PO DAILY 10/07/17 Carvedilol Phosphate [Coreg CR 80 mg Ext. Release Capsule] 1 cap.sr PO DAILY 10/07/17 Glimepiride [Amaryl] 2 mg PO DAILY 10/07/17 Hydralazine HCl 50 mg PO BID 10/07/17 Losartan Potassium 50 mg PO DAILY 10/07/17 Nifedipine [Procardia XL 60 mg Tablet] 60 mg PO DAILY 10/07/17 Rosuvastatin Calcium [Crestor] 40 mg PO QHS 10/07/17 Estrogens,Conjugated 0.45 mg PO DAILY 08/14/20 Allergies/Adverse Reactions: lisinopril Allergy (Verified 08/14/20 11:11) Shellfish * [Shellfish] Allergy (Verified 08/14/20 11:11) Review of Systems Constitutional: ABSENT: chills, fever(s), headache(s), weight gain, weight loss Eyes: ABSENT: visual disturbances Ears: ABSENT: hearing changes Cardiovascular: PRESENT: as per HPI Respiratory: ABSENT: cough, hemoptysis Gastrointestinal: ABSENT: abdominal pain, constipation, diarrhea, hematemesis, hematochezia, nausea, vomiting Genitourinary: ABSENT: dysuria, hematuria Musculoskeletal: ABSENT: joint swelling Integumentary: ABSENT: rash, wounds Neurological: ABSENT: abnormal gait, abnormal speech, confusion, dizziness, focal weakness, syncope Psychiatric: ABSENT: anxiety, depression, homidical ideation, suicidal ideation Endocrine: ABSENT: cold intolerance, heat intolerance, polydipsia, polyuria Hematologic/Lymphatic: ABSENT: easy bleeding, easy bruising Physical Exam Vital Signs: Temp Pulse Resp BP Pulse Ox 97.3 F 59 L 18 150/53 H 100 08/14/20 16:23 08/14/20 16:23 08/14/20 16:23 08/14/20 16:23 08/14/20 16:23 Intake & Output 08/13/20 08/14/20 08/15/20 06:59 06:59 06:59 Intake Total 240 Balance 240 Weight 76.2 kg General appearance: PRESENT: no acute distress, well-developed, well-nourished - Overweight Head exam: PRESENT: atraumatic, normocephalic Eye exam: PRESENT: conjunctiva pink, EOMI, PERRLA. ABSENT: scleral icterus Mouth exam: PRESENT: moist, tongue midline Neck exam: ABSENT: carotid bruit, JVD, lymphadenopathy, thyromegaly Respiratory exam: PRESENT: clear to auscultation nahid, symmetrical, unlabored. ABSENT: rales, rhonchi, wheezes Cardiovascular exam: PRESENT: RRR, +S1, +S2. ABSENT: diastolic murmur, rubs, systolic murmur Vascular exam: PRESENT: normal capillary refill Extremities exam: PRESENT: full ROM. ABSENT: calf tenderness, clubbing, pedal edema Neurological exam: PRESENT: alert, awake, oriented to person, oriented to place, oriented to time, oriented to situation, CN II-XII grossly intact. ABSENT: motor sensory deficit Psychiatric exam: PRESENT: appropriate affect, normal mood. ABSENT: homicidal i deation, suicidal ideation Skin exam: PRESENT: dry, intact, warm. ABSENT: cyanosis, rash Results Laboratory Results: 08/14/20 10:57 08/14/20 10:57 08/14/20 08/14/20 10:57 10:57 WBC 6.2 RBC 3.90 Hgb 11.4 L Hct 33.5 L MCV 86 MCH 29.3 MCHC 34.2 RDW 14.3 H Plt Count 150 Seg Neutrophils % 66.0 Sodium 139.9 Potassium 4.4 Chloride 108 H Carbon Dioxide 23 Anion Gap 9 BUN 21 H Creatinine 1.53 H Est GFR ( Amer) 40 L Glucose 236 H Calcium 10.5 H Magnesium 1.8 Total Bilirubin 0.3 AST 20 Alkaline Phosphatase 55 Total Protein 6.6 Albumin 3.7 08/14/20 08/14/20 10:57 13:28 Troponin I < 0.012 < 0.012 NT-Pro-B Natriuret Pep 93 Impressions: Chest X-Ray 08/14/20 10:17 IMPRESSION: NO ACUTE RADIOGRAPHIC FINDING IN THE CHEST. Assessment and Plan - Diagnosis (1) Chest pain Qualifiers: Chest pain type: unspecified Qualified Code(s): R07.9 - Chest pain, unspecified Is this a current diagnosis for this admission?: Yes Plan: Patient is admitted to medical floor on continuous cardiac telemetry. We will continue to trend troponins. We will risk stratify with TSH, A1c, and lipid panel. We will continue daily aspirin therapy. Start high-dose statin. SL nitroglycerin tab as needed chest discomfort. We will call the patient's established battery starter, Dr. Kelsey Schuler, [phone] floor in the morning to discuss the patient's case. Should troponins remain negative, patient may be appropriate for discharge with close outpatient follow-up. (2) CAD (coronary artery disease) Is this a current diagnosis for this admission?: Yes Plan: As above. (3) Diabetes Qualifiers: Diabetes mellitus type: type 2 Is this a current diagnosis for this admission?: Yes Plan: Holding oral medications while admitted. We will check A1c with a.m. lab work. Patient is placed on a consistent carb diet. Accu-Cheks before meals and at bedtime with Humalog for sliding scale coverage. Hypoglycemia protocol in place. (4) Hyperlipidemia Qualifiers: Hyperlipidemia type: unspecified Qualified Code(s): E78.5 - Hyperlipidemia, unspecified Is this a current diagnosis for this admission?: Yes Plan: We will check lipid panel with a.m. lab work. High-dose statin. Cardiac diet. (5) Hypertension Qualifiers: Hypertension type: essential hypertension Qualified Code(s): I10 - Essential (primary) hypertension Is this a current diagnosis for this admission?: Yes Plan: Resume home medication regiment of hydralazine, losartan, Procardia, and carvedilol. Cardiac diet. Monitor blood pressures and increase dosing as indicated. - Time Time Spent with patient: 35 or more minutes Medications reviewed and adjusted accordingly: Yes Anticipated Discharge Disposition: Home, Self Care Anticipated Discharge Timeframe: within 24 hours
[2020-08-14] MEDS ORDERED: ATORVASTATIN CALCIUM 80 MG TABLET PO SCH (22:00)
[2020-08-14] MEDS: HYDRALAZINE HCL 50 MG TABLET PO SCH (22:01)
[2020-08-14] MEDS: CARVEDILOL 12.5 MG TABLET PO SCH (22:01)
[2020-08-14] MEDS: ENOXAPARIN SODIUM INJ 80 MG/0.8 ML DISP.SYRIN SUBCUT SCH (22:02)
[2020-08-14] MEDS: INSULIN LISPRO 100 UNIT/ML 3 ML VIAL SUBCUT SCH (22:03)
[2020-08-15 06:29] LABS: HEMATOCRIT 28.8 % (36.0-47.0); MEAN CORPUSCULAR HEMOGLOBIN 29.5 pg (27.0-33.4); MEAN CORPUSCULAR HGB CONC 34.6 g/dL (32.0-36.0); MEAN CORPUSCULAR VOLUME 86 fl (80-97); PLATELET COUNT 128 10^3/uL (150-450); RED BLOOD COUNT 3.37 10^6/uL (3.72-5.28); RED CELL DISTRIBUTION WIDTH 14.3 % (11.5-14.0); WHITE BLOOD COUNT 6.6 10^3/uL (4.0-10.5)
[2020-08-15 06:46] LABS: ANION GAP 7 (5-19); BLOOD UREA NITROGEN 25 mg/dL (7-20); CALCIUM 9.6 mg/dL (8.4-10.2); CARBON DIOXIDE 20 mmol/L (22-30); CHLORIDE 113 mmol/L (98-107); CHOLESTEROL 227.33 mg/dL (0-200); GLUCOSE 98 mg/dL (75-110); POTASSIUM 4.1 mmol/L (3.6-5.0); TRIGLYCERIDES 275 mg/dL (<150)
[2020-08-15 06:57] LABS: DIRECT LDL 152 mg/dL (<100)
[2020-08-15] MEDS: INSULIN LISPRO 100 UNIT/ML 3 ML VIAL SUBCUT SCH ×2 (07:42→11:17)
[2020-08-15] MEDS ORDERED: LOSARTAN POTASSIUM 50 MG TABLET PO SCH (10:00)
[2020-08-15] MEDS ORDERED: ASPIRIN 81 MG TABLET, ENT COATED PO SCH (10:00)
[2020-08-15] MEDS ORDERED: CARVEDILOL PHOSPHATE PO SCH (10:00)
[2020-08-15] MEDS ORDERED: NIFEDIPINE 30 MG TAB.ER.24 PO SCH (10:00)
[2020-08-15] MEDS ORDERED: (PENDING PHARMACY ID) (Nifedipine [Procardia Xl 60 Mg Tablet] 60 MG) PO SCH (10:00)
[2020-08-15] MEDS: HYDRALAZINE HCL 50 MG TABLET PO SCH (10:24)
[2020-08-15] MEDS: CARVEDILOL 12.5 MG TABLET PO SCH (10:25)
[2020-08-15] MEDS: ENOXAPARIN SODIUM INJ 80 MG/0.8 ML DISP.SYRIN SUBCUT SCH (10:26)
[2020-08-15 10:35] VITALS: BP 150/53
--- NOTE | 2020-08-17 15:42 | PDOC DISCHARGE SUMMARY ---
Impression - Admit/DC Date/PCP Admission Date/Primary Care Provider: 08/14/20 14:18 BRAD CAO MD Discharge Date: 08/15/20 - Discharge Diagnosis (1) Chest pain Is this a current diagnosis for this admission?: Yes (2) CAD (coronary artery disease) Is this a current diagnosis for this admission?: Yes (3) Diabetes Is this a current diagnosis for this admission?: Yes (4) Hyperlipidemia Is this a current diagnosis for this admission?: Yes (5) Hypertension Is this a current diagnosis for this admission?: Yes - Additional Information Resuscitation Status: Full Code Discharge Diet: Cardiac Discharge Activity: Activity As Tolerated, Balance Activity w/Rest, Walk Frequently Referrals: BRAD CAO MD [Primary Care Provider] - 08/22/20 2:15 pm KELSEY CHRISTINE MD [NO LOCAL MD] - (Please notify office of your admission for chest pain; follow up as instructed.) Home Medications: Albuterol Sulfate [Proair HFA] 1 - 2 puff IH Q4 PRN 10/07/17 Aspirin [Aspirin EC] 81 mg PO DAILY 10/07/17 Carvedilol Phosphate [Coreg CR 80 mg Ext. Release Capsule] 1 cap.sr PO DAILY 10/07/17 Glimepiride [Amaryl] 2 mg PO DAILY 10/07/17 Hydralazine HCl 50 mg PO BID 10/07/17 Losartan Potassium 50 mg PO DAILY 10/07/17 Nifedipine [Procardia XL 60 mg Tablet] 60 mg PO DAILY 10/07/17 Rosuvastatin Calcium [Crestor] 40 mg PO QHS 10/07/17 Estrogens,Conjugated 0.45 mg PO DAILY 08/14/20 Acetaminophen [Tylenol 325 mg Tablet] 650 mg PO Q4HP PRN tablet 08/15/20 History of Present Illiness History of Present Illness: JUAN MIGUEL CASTANON is a 75 year old female with a past medical history of non- STEMI, CAD, cardiac catheterization with stents, renal artery stenosis s/p stent, hypertension, hyperlipidemia, COPD, and diabetes mellitus who presented to the emergency department today with a complaint of chest pain x24 hours. She reports that her chest pain is substernal, described as pressure with stabbing sensation, nonradiating, unrelated to activity, without alleviating or aggravating factors. She reports that her pain is intermittent with each episode lasting 10 to 15 minutes. She denies associated symptoms. At the time of my assessment, the patient denied all cardiac history including heart attack and cardiac procedures (specifically asked the patient about cardiac catheterizations and CABG). At the conclusion of our conversation the patient tells me that she was previously seen by Dr. Kumar but is now seen by a chocolate production machine operator in [place]. When I asked why she has a chocolate production machine operator, she states, "just to keep me healthy." Fortunately, I was able to speak with Dr. Kumar to obtain somewhat limited cardiac history. We have requested most recent progress note from the patient's chocolate production machine operator. Patient does tell me that she has not had an echocardiogram or cardiac stress test within the last year, however, I do feel that this information needs to be verified as she is clearly a poor historian. Evaluation in the emergency department is essentially unremarkable other than hypertension. CBC revealed mild anemia; improved from most recent labs. Chemistry revealed baseline renal function; CKD 3. She does have a mildly elevated calcium of 10.5. Serial troponins are negative x2. Chest x-ray is benign. EKG shows normal sinus rhythm without ST segment changes. She is referred to the hospitalist service for further evaluation and management of the above-stated complaints and findings. Hospital Course Hospital Course: (1) Chest pain Resolved. No further episodes of chest discomfort. Patient was admitted to medical floor on continuous cardiac telemetry. No abnormal findings by telemetry. Troponins were negative x3 A1c acceptable; lipid panel as below. Continue daily aspirin therapy. Start on high-dose statin. SL nitroglycerin tab as needed chest discomfort none required. Attempted to call the patient's established chocolate production machine operator, Dr. Kelsey Christine, prior to discharge to ensure timely outpatient follow-up. Unfortunately, provider did not return call. Discussed with patient option for arranging stress test prior to discharge. Patient elected to discharge to home with timely follow up with established chocolate production machine operator. She was advised to return to the emergency department, as needed, for concerning symptoms. (2) CAD (coronary artery disease) As above. (3) Diabetes A1c 4.5%. Continue home medication regiment. Encouraged lifestyle modification dietary discretion (4) Hyperlipidemia Lipid panel reveals mixed lipidemia with elevated triglycerides and LDL. Continue high-dose statin. Cardiac diet. Discussed dietary discretion and lifestyle modification with patient. (5) Hypertension Continue home medication regiment of hydralazine, losartan, Procardia, and carv edilol. Cardiac diet. Further management by PCP and outpatient cardiac Physical Exam Vital Signs: Temp Pulse Resp BP Pulse Ox 98.4 F 55 L 18 150/53 H 99 08/15/20 10:33 08/15/20 10:33 08/15/20 10:33 08/15/20 10:33 08/15/20 10:33 Intake & Output 08/16/20 08/17/20 08/18/20 06:59 06:59 06:59 Intake Total 1440 Balance 1440 General appearance: PRESENT: no acute distress, well-developed, well-nourished, other - Overweight Head exam: PRESENT: atraumatic, normocephalic Eye exam: PRESENT: conjunctiva pink, EOMI, PERRLA. ABSENT: scleral icterus Mouth exam: PRESENT: moist, tongue midline Neck exam: ABSENT: carotid bruit, JVD, lymphadenopathy, thyromegaly Respiratory exam: PRESENT: clear to auscultation nahid, symmetrical, unlabored. ABSENT: rales, rhonchi, wheezes Cardiovascular exam: PRESENT: RRR, +S1, +S2. ABSENT: diastolic murmur, rubs, systolic murmur Vascular exam: PRESENT: normal capillary refill Extremities exam: PRESENT: full ROM. ABSENT: calf tenderness, clubbing, pedal edema Musculoskeletal exam: PRESENT: ambulatory Neurological exam: PRESENT: alert, awake, oriented to person, oriented to place, oriented to time, oriented to situation, CN II-XII grossly intact. ABSENT: motor sensory deficit Psychiatric exam: PRESENT: appropriate affect, normal mood. ABSENT: homicidal ideation, suicidal ideation Skin exam: PRESENT: dry, intact, warm. ABSENT: cyanosis, rash Results Laboratory Results: WBC 6.6 10^3/uL (4.0-10.5) 08/15/20 06:16 RBC 3.37 10^6/uL (3.72-5.28) L 08/15/20 06:16 Hgb 10.0 g/dL (12.0-15.5) L 08/15/20 06:16 Hct 28.8 % (36.0-47.0) L 08/15/20 06:16 MCV 86 fl (80-97) 08/15/20 06:16 MCH 29.5 pg (27.0-33.4) 08/15/20 06:16 MCHC 34.6 g/dL (32.0-36.0) 08/15/20 06:16 RDW 14.3 % (11.5-14.0) H 08/15/20 06:16 Plt Count 128 10^3/uL (150-450) L 08/15/20 06:16 Lymph % (Auto) 21.4 % (13-45) 08/14/20 10:57 [place] % (Auto) 7.7 % (3-13) 08/14/20 10:57 Eos % (Auto) 4.4 % (0-6) 08/14/20 10:57 Baso % (Auto) 0.5 % (0-2) 08/14/20 10:57 Absolute Neuts (auto) 4.1 10^3/uL (1.7-8.2) 08/14/20 10:57 Absolute Lymphs (auto) 1.3 10^3/uL (0.5-4.7) 08/14/20 10:57 Absolute Monos (auto) 0.5 10^3/uL (0.1-1.4) 08/14/20 10:57 Absolute Eos (auto) 0.3 10^3/uL (0.0-0.6) 08/14/20 10:57 Absolute Basos (auto) 0.0 10^3/uL (0.0-0.2) 08/14/20 10:57 Seg Neutrophils % 66.0 % (42-78) 08/14/20 10:57 Sodium 139.7 mmol/L (137-145) 08/15/20 06:16 Potassium 4.1 mmol/L (3.6-5.0) 08/15/20 06:16 Chloride 113 mmol/L (98-107) H 08/15/20 06:16 Carbon Dioxide 20 mmol/L (22-30) L 08/15/20 06:16 Anion Gap 7 (5-19) 08/15/20 06:16 BUN 25 mg/dL (7-20) H 08/15/20 06:16 Creatinine 1.64 mg/dL (0.52-1.25) H 08/15/20 06:16 Est GFR ( Amer) 37 (>60) L 08/15/20 06:16 Est GFR (MDRD) Non-Af 31 (>60) L 08/15/20 06:16 Glucose 98 mg/dL (75-110) 08/15/20 06:16 POC Glucose 141 mg/dL (70-110) H 08/15/20 11:14 Hemoglobin A1c % 4.5 % (4.7-6.0) L 08/15/20 06:16 Calcium 9.6 mg/dL (8.4-10.2) 08/15/20 06:16 Magnesium 1.8 mg/dL (1.6-2.3) 08/14/20 10:57 Total Bilirubin 0.3 mg/dL (0.2-1.3) 08/14/20 10:57 Direct Bilirubin 0.3 mg/dL (0.0-0.4) 08/14/20 10:57 Neonat Total Bilirubin Not Reportable 08/14/20 10:57 Neonat Direct Bilirubin Not Reportable 08/14/20 10:57 Neonat Indirect Bili Not Reportable 08/14/20 10:57 AST 20 U/L (14-36) 08/14/20 10:57 ALT 12 U/L (<35) 08/14/20 10:57 Alkaline Phosphatase 55 U/L (38-126) 08/14/20 10:57 Troponin I 0.013 ng/mL 08/14/20 19:00 NT-Pro-B Natriuret Pep 93 pg/mL (<450) 08/14/20 10:57 Total Protein 6.6 g/dL (6.3-8.2) 08/14/20 10:57 Albumin 3.7 g/dL (3.5-5.0) 08/14/20 10:57 Triglycerides 275 mg/dL (<150) H 08/15/20 06:16 Cholesterol 227.33 mg/dL (0-200) H 08/15/20 06:16 LDL Cholesterol Direct 152 mg/dL (<100) H 08/15/20 06:16 VLDL Cholesterol 55.0 mg/dL (10-31) H 08/15/20 06:16 HDL Cholesterol 47 mg/dL (>40) 08/15/20 06:16 08/14/20 08/14/2020 10:57 13:28 19:00 Troponin I < 0.012 < 0.012 0.013 NT-Pro-B Natriuret Pep 93 Impressions: Chest X-Ray 08/14/20 10:17 IMPRESSION: NO ACUTE RADIOGRAPHIC FINDING IN THE CHEST. Plan Plan of Treatment: Patient is discharged home in stable condition. She is advised to follow-up with her primary care provider within 1 week. She is instructed to contact her established chocolate production machine operator and follow-up as instructed. Take medications as prescribed. Eat a heart healthy diet. Return to the emergency department as needed for concerning symptoms. Time Spent: Greater than 30 Minutes Stroke Is this a Stroke Patient?: No Acute Heart Failure Is this a Heart Failure Patient?: No
== END 2020-08-15 11:45 | disposition home or self-care (01) ==
LOC: ER 09:54 → EH 14:18 → 4S 16:25
PROVIDERS: ADMIT Hospitalist; ATTEND Registered Nurse
DX: R07.89 Other chest pain (principal); I25.10 Atherosclerotic heart disease of native coronary artery without angina pectoris; E78.2 Mixed hyperlipidemia; I13.0 Hypertensive heart and chronic kidney disease with heart failure and stage 1 through stage 4 chronic kidney disease, or unspecified chronic kidney disease; E11.22 Type 2 diabetes mellitus with diabetic chronic kidney disease; N18.30 Chronic kidney disease, stage 3 unspecified; I50.9 Heart failure, unspecified; J44.9 Chronic obstructive pulmonary disease, unspecified; D64.9 Anemia, unspecified; E11.51 Type 2 diabetes mellitus with diabetic peripheral angiopathy without gangrene; E66.3 Overweight; I25.2 Old myocardial infarction; Z79.82 Long term (current) use of aspirin; Z79.899 Other long term (current) drug therapy; Z95.5 Presence of coronary angioplasty implant and graft; Z79.84 Long term (current) use of oral hypoglycemic drugs; Z96.0 Presence of urogenital implants; Z82.49 Family history of ischemic heart disease and other diseases of the circulatory system; Z86.73 Personal history of transient ischemic attack (TIA), and cerebral infarction without residual deficits
CPT/HCPCS: 93005; 99285; 36415 ×2; 82962 ×2; 83735; 85025; 85027; 80048; 80053; 84484; 83036; 80061; 83880; 71045; 93010; G0378 ×3; A9270 ×10; J7030; J1650 ×2